=== PATIENT | male | born 1985 | race Caucasian/White ===

== ENCOUNTER 2021-06-17 21:15 | Emergency (ER) | payer OTHER, SELFPAY ==
--- NOTE | ~2021-06-17 | XR_ITS ---
EXAMINATION: XR CHEST CLINICAL INFORMATION: Chest tightness. COMPARISON: Most recent chest radiograph dated 10/19/2019. TECHNIQUE: Frontal view of the chest was obtained. FINDINGS: The lungs are clear. The cardiomediastinal silhouette is normal in size. There is no pleural effusion or pneumothorax. No acute osseous abnormality. XR/XR chest 1V IMPRESSION: No acute cardiopulmonary findings.
[2021-06-17 21:26] VITALS: BP 137/95; PULSE 74; RESP 20; TEMP 36.9; O2SAT 98; BMI 38.2
--- NOTE | 2021-06-17 21:47 | ECG_ITS ---
Test Reason : CHEST PAIN Blood Pressure : / mmHG Vent. Rate : 067 BPM Atrial Rate : 067 BPM P-R Int : 162 ms QRS Dur : 124 ms QT Int : 396 ms P-R-T Axes : -24 126 104 degrees QTc Int : 418 ms Normal sinus rhythm Right axis deviation Non-specific intra-ventricular conduction delay Nonspecific T wave abnormality Abnormal ECG When compared with ECG of 19-JUL-2010 09:40, QRS axis Shifted right Nonspecific T wave abnormality now evident in Inferior leads Nonspecific T wave abnormality now evident in Lateral leads Referred By: Generic ED Physician Electronically Signed By:DEMETRIA BARNHART
--- NOTE | 2021-06-17 21:56 | ED_ITS ---
HPI - Chest Pain General Chief Complaint: Chest Pain Stated Complaint: covid + Time Seen by Provider: 06/17/21 21:55 Source: patient Mode of arrival: ambulatory History of Present Illness HPI narrative: 35-year-old male without significant past medical history presents after being diagnosed with COVID-19 approximately 6 days ago at his school. He states that most of his symptoms have gradually resolved but that his cough has persisted and he is having feelings of chest tightness. Otherwise, he denies palpitations or fevers. Related Data Previous Rx's Medication Instructions Recorded benzonatate 100 mg capsule 100 mg PO TID PRN #14 cap 06/17/21 (Tessalon Perlcherry) prednisone 20 mg tablet 40 mg PO DAILY 4 Days #8 tab 06/17/21 Allergies Allergy/AdvReac Type Severity Reaction Status Date / Time No Known Allergies Allergy Unverified 06/01/20 15:41 Review of Systems Review of Systems: Pertinent positives and negatives as stated in HPI 10 point review of systems is otherwise negative. PMFSH Past Medical History Source: nursing notes reviewed Medical History Asthma Social History Social History Advance Directives: No Advance Directives Information Provided: No Physical Exam Vital Signs: Vital Signs: Last Vital Signs Temp 98.6 F 06/17/21 22:43 Pulse 74 06/17/21 22:43 Resp 14 06/17/21 22:43 BP 124/85 06/17/21 22:43 Pulse Ox 98 06/17/21 22:43 Body Mass Index 38.2 VITAL SIGNS: Reviewed. GENERAL: Obese, Well developed, well nourished, in no acute distress. HEAD: Normocephalic/atraumatic EYES: PERRLA, EOMI OROPHARYNX: no oral lesions noted, posterior pharynx clear and non-erythematous without noted tonsillar enlargement/erythema/exudates NECK: Supple, no adenopathy LUNGS: Normal breath sounds, no wheeze/rhonchi/rales. SpO2<98> CARDIOVASCULAR: Regular rate and rhythm without noted murmurs, no JVD or lower e xtremity edema. ABDOMEN: Soft, non-tender, non-distended with bowel sounds. MUSCULOSKELETAL: No tenderness, deformities, or effusions noted on gross inspection. EXTREMITIES: No cyanosis, clubbing or edema. SKIN: Inspection of the skin reveals no rashes NEUROLOGIC: Alert and oriented x 4. Course Course Course Narrative: 35-year-old male with history and clinical presentation consistent with sequela of COVID-19 as well as likely mild exacerbation of underlying asthma. Review of all investigations negative for acute findings and patient reports significant improvement in his symptoms after receiving albuterol and prednisone as well as cough suppressant medications. He is neither hypoxic nor is he tachycardic and will be discharged home in stable condition. MDM - Chest Pain ECG Data ECG #1: Attestation: I personally reviewed and interpreted this ECG as follows: Prior ECG tracings: available for review (07/19/2010 ) Interpretation: Normal sinus rhythm, HR -67, no STEMI MA/QTC are within normal limits. Discharge Plan Discharge Clinical Impression: Lab test positive for detection of COVID-19 virus, Asthma Patient Disposition: Home, Self-Care Instructions: Asthma (ED), COVID-19 (Coronavirus Disease 2019) (ED) Additional Instructions: 1. Continue to self quarantine as per Federal and State guidelines. 2. Set up a follow-up appointment with your primary care provider via tel emedicine. Return to the ER for acute worsening of symptoms. Prescriptions: New prednisone 20 mg tablet 40 mg PO DAILY 4 Days Qty: 8 RF: 0 benzonatate [Tessalon Perles] 100 mg capsule 100 mg PO TID PRN (Reason: cough) Qty: 14 RF: 0 Referrals: Donavon Lang MD [Primary Care Provider] - 2 days
[2021-06-17] MEDS: predniSONE 20 MG TABLET 40 MG PO (22:05)
[2021-06-17] MEDS: Benzonatate 100 MG CAPSULE PO (22:05)
[2021-06-17] MEDS: Albuterol Sulfate 90 MCG 8 GM INHALER 4 PUFF INHALE (22:06)
[2021-06-17 22:43] VITALS: BP 124/85; PULSE 74; RESP 14; TEMP 37; O2SAT 98
== END 2021-06-17 23:15 | disposition home or self-care (01) ==
PROVIDERS: Emergency Provider Student in an Organized Health Care Education/Training Program; PCP Internal Medicine
DX: U07.1 COVID-19 (principal); R50.9 Fever, unspecified; Z79.899 Other long term (current) drug therapy
CPT/HCPCS: 71045; 93005; 99283; 99284